=== PATIENT | male | born 1955 ===

== ENCOUNTER 2019-07-12 01:53 | Emergency (ER) | payer SELFPAY ==
[~2019-07-12] VITALS: Ht 175.3 cm; Wt 95.0 kg
[2019-07-12] MEDS ORDERED: OXYcodone/APAP 5/325MG TABLET PO ONE (02:30)
[2019-07-12] MEDS ORDERED: OXYcodone/APAP 5/325MG TABLET ONE (02:32)
[2019-07-12 04:27] VITALS: BP 136/99
== END 2019-07-12 04:44 | disposition home or self-care (01) ==
LOC: ED 04:33
DX: G89.11 Acute pain due to trauma (principal); M25.551 Pain in right hip; Z87.891 Personal history of nicotine dependence; W01.0XXA Fall on same level from slipping, tripping and stumbling without subsequent striking against object, initial encounter; Y93.29 Activity, other involving ice and snow; Y92.89 Other specified places as the place of occurrence of the external cause; Y99.8 Other external cause status
CPT/HCPCS: 99284